=== PATIENT | female | born 1975 | race Two or more races ===

== ENCOUNTER 2020-12-12 13:14 | Emergency (ER) | payer OTHER ==
[~2020-12-12] VITALS: Ht 154.9 cm; Wt 73.3 kg
[2020-12-12] MEDS ORDERED: ONDANSETRON PF 4 MG/2 ML VIAL. ONE (13:49)
--- NOTE | 2020-12-12 13:55 | PHYS DOC ---
General Adult EDM: Chief Complaint: ABDOMINAL PAIN HPI: HPI: 45-year-old female presents with vomiting. The patient has been vomiting since 8 AM. She had multiple episodes and is now mostly dry heaving. She has moderate to severe cramping right lower quadrant pain. The patient went out and drank some alcohol last night. She just moved to town. She denies fever or chills. Review of Systems: Review of Systems: Constitutional: Denies fever or chills Eyes: Denies change in visual acuity HENT: Denies nasal congestion or sore throat Respiratory: Denies cough or shortness of breath Cardiovascular: Denies chest pain or edema GI: RLQ abdominal pain, nausea, vomiting. Denies bloody stools or diarrhea : Denies dysuria Musculoskeletal: Denies back pain or joint pain Integument: Denies rash Neurologic: Denies headache, focal weakness or sensory changes Endocrine: Denies polyuria or polydipsia Lymphatic: Denies swollen glands Psychiatric: Denies depression or anxiety Current Medications: Current Meds: Current Medications Medications (Trade) Dose Ordered Sig/Kwabena Start Time Stop Time Status Last Admin Dose Admin Ondansetron HCl (Zofran) 4 mg STK-MED ONCE 12/12/20 13:49 12/12/20 13:49 DC Sodium Chloride 1,000 ml @ 1,000 mls/hr 1X ONCE 12/12/20 14:00 12/12/20 14:59 Allergies: Allergies: Allergies Coded Allergies Type Severity Reaction Last Updated Verified No Known Drug Allergies 12/12/20 No Physical Exam: PE: Constitutional: Well developed, well nourished, moderate acute distress. [] HENT: Normocephalic, atraumatic, bilateral external ears normal, oropharynx moist, no oral exudates, nose normal. [] Eyes: PERRLA, EOMI, conjunctiva normal, no discharge. [] Neck: Normal range of motion, no tenderness, supple, no stridor. [] Cardiovascular: Heart rate regular rhythm, no murmur [] Lungs & Thorax: Bilateral breath sounds clear to auscultation [] Abdomen: Bowel sounds normal, soft, RLQ tenderness, no masses, no pulsatile masses. [] Skin: Warm, dry, no erythema, no rash. [] Back: No tenderness, no CVA tenderness. [] Extremities: No tenderness, no cyanosis, no clubbing, ROM intact, no edema. [] Neurologic: Alert and oriented X 3, normal motor function, normal sensory function, no focal deficits noted. [] Psychologic: Affect normal, judgement normal, mood normal. [] EKG: EKG: [] Radiology/Procedures: Radiology/Procedures: [] Impressions: CT abdomen pelvis with contrast dated 12/12/2020. No comparison available. CLINICAL INDICATION: Right lower quadrant pain. TECHNIQUE: Contiguous axial imaging of the abdomen pelvis performed following the intravenous administration of iodinated contrast. One or more of the following individualized dose reduction techniques were utilized for this examination: 1. Automated exposure control 2. Adjustment of the mA and/or kV according to patient size 3. Use of iterative reconstruction technique. FINDINGS: Limited images of the lung bases are clear. No consolidation or pleural effusion. Low-density focus in the right lobe liver measuring 2.3 cm with suggestion of some peripheral nodular enhancement. Liver is otherwise homogeneous. No biliary ductal dilatation. Gallbladder unremarkable. Spleen is normal in size. Pancreas, adrenal glands and kidneys are unremarkable. No hydronephrosis. Unopacified GI tract normal in caliber and contour. No focal bowel wall thickening. No inflammatory stranding in the mesentery. The appendix is normal in caliber. No ascites or lymphadenopathy. Abdominal aorta normal in caliber. Images of pelvis a moderately distended urinary bladder. Uterus unremarkable. No free fluid or pelvic lymphadenopathy. Bone windows show no acute finding. IMPRESSION: 1. No acute abnormality of abdomen or pelvis. Normal appendix. 2. There is am indeterminate low-density lesion in the right lobe liver, likely hemangioma. Follow biphasic CT or liver MRI could better evaluate. 3. Status post hysterectomy. Electronically signed by: Abdullahi Rodriguez MD (12/12/2020 3:13 PM) [id number] DICTATED AND SIGNED BY: ABDULLAHI RODRIGUEZ MD DATE: 12/12/20 1509 CC: GERSON GUARDADO DO; PCP,NO ~MTH0 0 Heart Score: C/O Chest Pain: N/A Risk Factors: Risk Factors: DM, Current or recent (<one month) smoker, HTN, HLP, family history of CAD, obesity. Risk Scores: Score 0 - 3: 2.5% MACE over next 6 weeks - Discharge Home Score 4 - 6: 20.3% MACE over next 6 weeks - Admit for Clinical Observation Score 7 - 10: 72.7% MACE over next 6 weeks - Early Invasive Strategies Course & Med Decision Making: Course & Med Decision Making Pertinent Labs and Imaging studies reviewed. (See chart for details) The patient's labs are unremarkable. Her CT of the abdomen pelvis is negative for acute findings. There is an incidental finding in the liver. See official read for more details. Her urinalysis is negative for infection. The patient was given a liter normal saline, 4 mg of Zofran, 4 mg of morphine initially for her pain and vomiting. Her vomiting has resolved. We additionally gave her 15 mg of Toradol, 25 mg of Benadryl, and 10 mg of Reglan for her headache. I believe the patient is just hung over from drinking too much alcohol. She is stable for discharge at this time. [] Dragon Disclaimer: Dragon Disclaimer: This electronic medical record was generated, in whole or in part, using a voice recognition dictation system. Departure Departure: Impression: Primary Impression: Nausea and vomiting Qualified Codes: R11.2 - Nausea with vomiting, unspecified Additional Impression: Abdominal pain Qualified Codes: R10.31 - Right lower quadrant pain Disposition: HOME / SELF CARE / HOMELESS Condition: IMPROVED Referrals: PCP,NO (PCP) Patient Instructions: Abdominal Pain, [id number], Nausea and Vomiting, [id number] Scripts Ondansetron (ONDANSETRON ODT) 4 Mg Tab.rapdis 1 TAB PO PRN Q6-8HRS PRN for VOMITING, #16 TAB Prov: GERSON GUARDADO DO 12/12/20 GERSON GUARDADO DO Dec 12, 2020 13:55
[2020-12-12 13:58] LABS: BASO # 0.1 x10^3/uL (0.0-0.2); BASO % 1 % (0-3); EOS % 0 % (0-3); HEMATOCRIT 38.8 % (36.0-47.0); HEMOGLOBIN 12.3 g/dL (12.0-15.5); LYMPH # 0.7 x10^3/uL (1.0-4.8); LYMPH % 8 % (24-48); MEAN CORPUSCULAR HEMOGLOBIN 23 pg (25-35); MEAN CORPUSCULAR HGB CONC 32 g/dL (31-37); MEAN CORPUSCULAR VOLUME 74 fL (79-100); MONO # 0.2 x10^3/uL (0.0-1.1); MONO % 2 % (0-9); NEUT # 8.6 x10^3uL (1.8-7.7); NEUT % 89 % (31-73); PLATELET COUNT 377 x10^3/uL (140-400); RED BLOOD COUNT 5.28 x10^6/uL (3.50-5.40); RED CELL DISTRIBUTION WIDTH 22.3 % (11.5-14.5); WHITE BLOOD COUNT 9.7 x10^3/uL (4.0-11.0)
[2020-12-12] MEDS ORDERED: MORPHINE SULFATE 4 MG/ML DISP.SYRIN. IV ONE (14:00)
[2020-12-12] MEDS ORDERED: IV NORMAL SALINE 1,000ML 1,000 ML IV ONE (14:00)
[2020-12-12] MEDS ORDERED: ONDANSETRON PF 4 MG/2 ML VIAL. IVP ONE (14:00)
[2020-12-12 14:08] LABS: CALCIUM 8.9 mg/dL (8.5-10.1); CREATININE 0.9 mg/dL (0.6-1.0); GFR 67.7; POTASSIUM 3.5 mmol/L (3.5-5.1)
[2020-12-12 14:15] LABS: ALBUMIN 4.4 g/dL (3.4-5.0); TOTAL BILIRUBIN 0.5 mg/dL (0.2-1.0); TOTAL PROTEIN 8.6 g/dL (6.4-8.2)
[2020-12-12] MEDS ORDERED: IOHEXOL 300 MG/ML 75 ML VIAL. IV ONE (14:15)
[2020-12-12 15:01] LABS: ANISOCYTOSIS MOD; HYPOCHROMIA SLIGHT; MICROCYTOSIS SLIGHT; PLT ESTIMATE ADEQUATE (ADEQUATE)
--- NOTE | 2020-12-12 15:16 | RAD ---
CT abdomen pelvis with contrast dated 12/12/2020. No comparison available. CLINICAL INDICATION: Right lower quadrant pain. TECHNIQUE: Contiguous axial imaging of the abdomen pelvis performed following the intravenous administration of iodinated contrast. One or more of the following individualized dose reduction techniques were utilized for this examinat ion: 1. Automated exposure control 2. Adjustment of the mA and/or kV according to patient size 3. Use of iterative reconstruction technique. FINDINGS: Limited images of the lung bases are clear. No consolidation or pleural effusion. Low-density focus in the right lobe liver measuring 2.3 cm with suggestion of some peripheral nodular enhancement. Liver is otherwise homogeneous. No biliary ductal dilatation. Gallbladder unremarkable. Spleen is normal in size. Pancreas, adrenal glands and kidneys are unremarkable. No hydronephrosis. Unopacified GI tract normal in caliber and contour. No focal bowel wall thickening. No inflammatory s tranding in the mesentery. The appendix is normal in caliber. No ascites or lymphadenopathy. Abdomina l aorta normal in caliber. Images of pelvis a moderately distended urinary bladder. Uterus unremarkable. No free fluid or pelvic lymphadenopathy. Bone windows show no acute finding. IMPRESSION: 1. No acute abnormality of abdomen or pelvis. Normal appendix. 2. There is am indeterminate low-density lesion in the right lobe liver, likely hemangioma. Follow bi phasic CT or liver MRI could better evaluate. 3. Status post hysterectomy. Electronically signed by: Abdullahi Rodriguez MD (12/12/2020 3:13 PM) [id number]
[2020-12-12 15:42] VITALS: BP 153/94
[2020-12-12 16:03] LABS: BILIRUBIN,URINE NEG (NEG); CLARITY,URINE CLOUDY; COLOR,URINE STRAW; GLUCOSE,URINE NEG (NEG); UROBILINOGEN,URINE 0.2 mg/dL (0.2 mg/dL)
[2020-12-12 16:04] LABS: BACTERIA,URINE 0 /HPF (0-FEW); NITRITE,URINE NEG (NEG); RBC,URINE 0 /HPF (0-2); SQUAMOUS EPITHELIAL CELL,UR OCC /LPF; WBC,URINE RARE /HPF (0-4)
[2020-12-12] MEDS ORDERED: ONDA4TAB12 PO (16:11)
[2020-12-12] MEDS ORDERED: KETOROLAC 15 MG/ML VIAL. IVP ONE (16:15)
[2020-12-12] MEDS ORDERED: diphenhydrAMINE 50 MG/ML VIAL IVP ONE (16:15)
[2020-12-12] MEDS ORDERED: METOCLOPRAMIDE HCL 10 MG/2 ML VIAL. IVP ONE (16:15)
== END 2020-12-12 16:25 | disposition home or self-care (01) ==
LOC: ER 13:14
DX: R11.2 Nausea with vomiting, unspecified (principal); R10.31 Right lower quadrant pain
CPT/HCPCS: 36415; 74177; 80053; 81001; 85025; 96361; 96374; 96375; 99285; J1200; J1885; J2270; J2405; J2765; J7030; Q9967